=== PATIENT | female | born 1995 | race Asian ===

== ENCOUNTER 2017-01-10 20:30 | Emergency (ER) | payer OTHER ==
[~2017-01-10] VITALS: Ht 162.6 cm; Wt 48.6 kg
[2017-01-10 20:33] VITALS: TEMP 36.8; Ht 162.6 cm; Wt 48.6 kg
[2017-01-10] MEDS ORDERED: PROPARACAINE HCL 0.5% OP SOLN 15 ML BTL OP STA (21:23)
[2017-01-10] MEDS ORDERED: NORCO 5/325MG HOME PACK PO ONE (22:00)
[2017-01-10] MEDS ORDERED: CIPROFLOXACIN HCL 0.3% OP SOLN 2.5 ML BTL OP ONE (22:00)
[2017-01-10 22:08] VITALS: BP 120/73; PULSE 95; O2SAT 98
--- NOTE | 2017-01-11 15:34 | EMERGENCY ROOM VISIT NOTE ---
ED Visit Note First contact with patient: 21:17 CHIEF COMPLAINT: Eye pain HISTORY OF PRESENT ILLNESS: This 21-year-old female patient presents to the emergency department complaining of pain in the right eye for the past few hours. She does wear contact lenses and had pain after taking out her contact lenses. She believes there may be a retained piece of contact lens in the right eye. There has been a constant moderate pain and irritation, redness and tearing in the eye. There is a mild blurring of vision at times and light bothers the eye. The vision has been decreased over all. The patient rates the pain as sharp and 9/10. The patient has not had previous injuries to this eye. Tetanus shot is reportedly up to date. REVIEW OF SYSTEMS: A 6 system review of systems was completed with positives and pertinent negatives listed in the HPI. ALLERGIES: No known allergies MEDICATIONS: No chronic medications PMH: Otherwise healthy SOCIAL HISTORY: Student and lives locally PHYSICAL EXAM: Vital Signs: Reviewed Nurse's notes, vital signs stable. Visual acuity 20/200 in the right. GENERAL: This is a 18 female, in no acute distress , but who is uncomfortable from the eye problem. Well-developed well- nourished. EYES: The pupils are equal round and reactive to light and accommodation. EOMs are full and without tenderness. There is discharge of clear tears from the right eye which is injected. There is no foreign body visible under the eyelid even after lid eversion. Funduscopic exam reveals no hemorrhages, papilledema, or other abnormalities. No foreign body was seen embedded in the cornea under slit lamp exam. The cornea was clear and no hyphema was seen. Fluorescein uptake was observed with ultraviolet light significant for a corneal abrasion at 6:00. EMERGENCY DEPARTMENT COURSE: I examined the patient. Alcaine 2 drops were placed in the patient's right eye. A slit lamp exam was performed as above. Ciloxan two drops was placed in the patient's right eye. The patient was discharged home in good condition with instructions as below. Vital Signs Date Time Temp Pulse Resp B/P (MAP) Pulse Ox O2 Delivery O2 Flow Rate FiO2 01/10/17 22:08 95 18 120/73 98 01/10/17 20:33 36.8 112 20 129/89 93 Room Air Medications Administered Medications (Trade) Dose Ordered Sig/Torito Route Start Time Stop Time Status Last Admin Dose Admin Proparacaine HCl (Alcaine 0.5% Oph Soln) 2 drops NOW STAT OP 01/10/17 21:23 01/10/17 21:24 DC 01/10/17 21:23 2 DROPS Ciprofloxacin HCl (Ciprofloxacin 0.3% Op Soln) 2 drops NOW ONCE OP 01/10/17 22:00 01/10/17 22:01 DC 01/10/17 22:00 2 DROPS Acetaminophen/ Hydrocodone Bitart ([place] 5/325mg Home Pack) 1 homepack UD ONCE PO 01/10/17 22:00 01/10/17 22:01 DC 01/10/17 22:01 1 HOMEPACK Departure Information Impression Primary Impression: Corneal abrasion Dispostion Home / Self-Care Condition GOOD Forms HOME CARE DOCUMENTATION FORM, IMPORTANT VISIT INFORMATION Patient Instructions My [facility] Additional Instructions You were seen and evaluated today on an emergency basis only. This is not a substitute for, or an effort to provide, complete comprehensive medical care. It is not possible to recognize and treat all injuries or illnesses in a single emergency department visit. For this reason it is recommended that you followup with your eye doctor this week for recheck. Use Ciloxan Eye Drops: Instill 1-2 drops into the conjunctival sac every 2 hours while awake for 2 days and 1-2 drops every 4 hours while awake for the next 5 days [place] (hydrocodone/acetaminophen) 5/325 mg (homepack) ONE pill every 6 hours as needed for worsening breakthrough pain. Do not drink or drive on [place]. This medication will likely make you tired. Do not take [place] and Tylenol at the same time as both contain acetaminophen. [place] may cause constipation. You may wish to take an [id number] stool softener like Colace if this occurs. You are welcome to return to the emergency department anytime with new, worsening, or concerning symptoms.
== END 2017-01-10 22:09 | disposition home or self-care (01) ==
LOC: C.EDB 20:32 → C.EDD 22:09
DX: S05.01XA Injury of conjunctiva and corneal abrasion without foreign body, right eye, initial encounter (principal); X58.XXXA Exposure to other specified factors, initial encounter

== ENCOUNTER 2017-01-22 19:21 | Emergency (ER) | payer OTHER ==
[~2017-01-22] VITALS: Ht 157.5 cm; Wt 48.0 kg
[2017-01-22 19:25] VITALS: TEMP 36.7; Ht 157.5 cm; Wt 48.0 kg
[2017-01-22] MEDS ORDERED: PROPARACAINE HCL 0.5% OP SOLN 15 ML BTL OP STA (19:59)
[2017-01-22] MEDS ORDERED: PROPARACAINE HCL 0.5% OP SOLN 15 ML BTL ONE (20:00)
[2017-01-22] MEDS ORDERED: ERYTHROMYCIN OP OINT 5 MG/GM 3.5 GM TUBE OP ONE (21:00)
[2017-01-22 21:20] VITALS: BP 104/65; PULSE 87; O2SAT 99
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
== END 2017-01-22 21:20 | disposition home or self-care (01) ==
LOC: C.EDB 19:22 → C.EDD 21:20
DX: H53.8 Other visual disturbances (principal)